=== PATIENT | female | born 1960 | race Caucasian/White ===

== ENCOUNTER 2017-01-11 20:09 | Emergency (ER) | payer OTHER, BC ==
[2017-01-11 20:26] VITALS: BP 166/79; BMI 60.0
== END 2017-01-11 21:29 | disposition left against medical advice (07) ==
LOC: ER 20:35
DX: R11.10 Vomiting, unspecified (principal)
CPT/HCPCS: 99281

== ENCOUNTER 2018-08-28 18:48 | Observation (INO) ==
--- NOTE | 2018-08-28 19:44 | DR.LOC ---
HPI Time seen Time Seen by Provider: 08/28/18 19:20 PCP Primary Care Physician: LIBERTY Complaint Chief Complaint Doctors Comments: A 57 y/o female brought by EMS with c/o LOC while sitting on the commode. She was in the shower and had a headache, so she came out of the shower and sat on the commode. She states that is what she remembered last. Her sister found her with acro-cyanosis around her lips. But the sister is not here to provide or contribute further to the hx. Chief Complaint:: APPLIN [facility] EMS BROUGHT IN PATIENT. PATIENT ALERT ORIENTED TO NAME . PATIENT STATES, "I WAS IN THE SHOWER, I GOT A REAL BAD HEADACHE. I TRIED TO SIT DOWN BUT I DON'T REMEMBER ANYTHING AFTER THAT." EMS STATES, FAMILY SAID SHE WAS BLUE AROUND HER MOUTH. NO OBVIOUS DEFORMITIES NOTED. PATIENT SEEMS CONFUSED, NOT RECALLING WHAT OCCURED. NO ACUTE DISTRESS NOTED Nurses Notes Reviewed Nurses Notes Review: Yes Source History Provided: Patient and EMS Mode of Arrival Mode of Arrival: EMS Timing Onset of Chief Complaint: 08/28/18 Came on: Suddenly Duration How lon Duration: Hours Context Postsyncopal phase: Delayed recovery Prehospital care: None History of: None Modifying factors Worsens: Nothing Associated signs and symptoms Associated Signs and Symptoms: Headache PMH PMH Past Medical History: Yes Past Medical History: Anxiety, Arthritis, Depression, Diabetes, Dyslipidemia, GERD and Hypertension Past Surgical History: Yes Surgical History: Appendectomy and Cholecystectomy Family History History of Family Medical Conditions: Yes Family Medical History: Diabetes Mellitus, Cancer, [place], Sudden Cardiac and Hypertension Social History Does patient currently use any type of tobacco product: No Have you used tobacco products in the last 12 months: No Type of Tobacco Use: None Does any household member use tobacco: No Alcohol Use: None Do you use any recreational Drugs:: No Lives With: Spouse Lives Where: Home infectious screening In the last 2 months have you had wt loss of >10#?: NO Have you had fever, night sweats or hemotysis?: No Have you traveled outside the country in the last 6 months?: No Isolation: Standard ROS Review of Systems Constitutional: No Symptoms Reported Eyes: No Symptoms Reported ENTM: No Symptoms Reported Respiratoy: No Symptoms Reported Cardiovascular: No Symptoms Reported Gastrointestinal/Abdominal: No Symptoms Reported Genitourinary: No Symptoms Reported Neurological: Headache and Other (LOC) Musculoskeletal: No Symptoms Reported Integumentary: No Symptoms Reported Hematologic/Lymphatic: No Symptoms Reported Endocrine: No Symptoms Reported Psychiatric: No Symptoms Reported PE Vital Signs Vitals: Temperature 98.1 F Pulse Rate [Apical] 80 Pulse Rate 80 Respiratory Rate 15 Blood Pressure [Left Radial 142/77 Artery] Blood Pressure [Left Arm] 139/68 Blood Pressure [Right Arm] 104/55 Blood Pressure 118/59 O2 Sat by Pulse Oximetry 98 General Limitations: No Limitations General Appearance: Alert, In No Apparent Distress and Obese Head Head Exam: Normal Inspection, Atraumatic and Normocephalic Eyes Eye exam: Normal Appearance and EOMI ENT ENT Exam: Normal Oropharynx and Mucous Membranes Moist Neck Neck Exam: Normal Inspection, Full ROM and Trachea Midline Chest Chest Inspection: Normal Inspection and Symmetric Chest Wall Rise Respiratory Respiratory Exam: Normal Lung Sounds Bilat Cardiovascular Cardiovascular Exam: Regular Rate, Normal Rhythm, +S1 and +S2 Abdominal Exam Abdominal Exam: Normal Inspection, Normal Bowel Sounds and Soft Rectal Rectal Exam: Deferred Extremities Extremities Exam: Normal Inspection Back Back Exam: Normal Inspection Neurologic Neurological Exam: Alert and Oriented X3 Psychiatric Psychiatric Exam: Normal Affect and Normal Mood Skin Skin Exam: Warm, Dry and Normal Color COURSE Reevaluation 1st: Improved Education/Counseling Education/Counseling: Patient, Family, Education and Counseling Educated On: Treatment, Diagnosis, Prognosis and Needs for Follow Up ROR Labs Reviewed Laboratory Results Reviewed?: Yes Result Diagrams: 08/28/18 19:56 08/28/18 19:56 Laboratory: WBC 11.2 X10^3/uL (3.6-10.0) H 08/28/18 19:56 RBC 4.79 X10^6/uL (3.5-5.4) 08/28/18 19:56 Hgb 12.1 g/dL (12.0-16.0) 08/28/18 19:56 Hct 37.3 % (36.0-47.0) 08/28/18 19:56 MCV 77.8 fL (80.0-100.0) L 08/28/18 19:56 MCH 25.2 pg (27.0-34.0) L 08/28/18 19:56 MCHC 32.3 g/dL (33.0-35.0) L 08/28/18 19:56 RDW 14.7 % (11.6-16.5) 08/28/18 19:56 Plt Count 217 X10^3/uL (150.0-450.0) 08/28/18 19:56 Plt Count Comment Adequate (ADEQUATE) 08/28/18 19:56 MPV 10.1 fL (7.4-11.0) 08/28/18 19:56 Neut % (Auto) 64.5 % (42.0-75.0) 08/28/18 19:56 Lymph % (Auto) 26.0 % (21.0-51.0) 08/28/18 19:56 Moody % (Auto) 7.0 % (0.0-13.0) 08/28/18 19:56 Eos % (Auto) 1.4 % (0.9-2.9) 08/28/18 19:56 Baso % (Auto) 1.1 % (0.2-1.0) H 08/28/18 19:56 Neut # (Auto) 7.2 x10^3/uL (2.2-4.8) H 08/28/18 19:56 Lymph # (Auto) 2.9 X10^3/uL (1.3-2.9) 08/28/18 19:56 Moody # (Auto) 0.8 x10^3/uL (0.3-0.8) 08/28/18 19:56 Eos # (Auto) 0.2 x10^3/uL (0.0-0.2) 08/28/18 19:56 Baso # (Auto) 0.1 X10^3/uL (0.0-0.1) 08/28/18 19:56 Absolute Nucleated RBC 0.0 /100WBC 08/28/18 19:56 Plt Morphology Comment Normal (NORMAL) 08/28/18 19:56 RBC Morphology Abnormal (NORMAL) A 08/28/18 19:56 Hypochromasia Slight A 08/28/18 19:56 Microcytosis Slight A 08/28/18 19:56 Sodium 134 mmol/L (136-145) L 08/28/18 19:56 Corrected Sodium 138 mmol/L (136-145) 08/28/18 19:56 Potassium 3.8 mmol/L (3.5-5.1) 08/28/18 19:56 Chloride 98 mmol/L (98-107) 08/28/18 19:56 Carbon Dioxide 27.5 mmol/L (21-32) 08/28/18 19:56 BUN 11 mg/dL (7-18) 08/28/18 19:56 Creatinine 1.04 mg/dL (0.55-1.02) H 08/28/18 19:56 Est GFR (MDRD) Af Amer > 60 (>60) 08/28/18 19:56 Est GFR (MDRD) Non-Af 58 (>60) L 08/28/18 19:56 Glucose 250 mg/dL (65-99) H 08/28/18 19:56 Calcium 9.0 mg/dL (8.5-10.1) 08/28/18 19:56 Corrected Calcium TNP 08/28/18 19:56 Total Bilirubin 0.20 mg/dL (0.2-1.0) 08/28/18 19:56 AST 29 Units/L (15-37) 08/28/18 19:56 ALT 33 Units/L (12-78) 08/28/18 19:56 Alkaline Phosphatase 76 Units/L (46-116) 08/28/18 19:56 Total Protein 7.7 g/dL (6.4-8.2) 08/28/18 19:56 Albumin 3.4 g/dL (3.4-5.0) 08/28/18 19:56 Globulin 4.3 g/dL (2.5-4.5) 08/28/18 19:56 Albumin/Globulin Ratio 0.8 Ratio (1.1-2.1) L 08/28/18 19:56 XRAY XRAY Interpreted by: Radiologist XRAY Findings: Brain CT: No acute intracranial abnormality Diagnosis Discharge Problem: Hyperlipidemia, mixed Syncope Qualifiers: Syncope type: unspecified Qualified Code(s): R55 - Syncope and collapse Diabetes Qualifiers: Diabetes mellitus type: type 2 Diabetes mellitus manager intermediate insulin use: without manager intermediate use Diabetes mellitus complication status: with unspecified complications Qualified Code(s): E11.8 - Type 2 diabetes mellitus with unspecified complications
[2018-08-28 20:08] LABS: BASOPHILS # (AUTO) 0.1 X10^3/uL (0.0-0.1); BASOPHILS % (AUTO) 1.1 % (0.2-1.0); EOSINOPHILS # (AUTO) 0.2 x10^3/uL (0.0-0.2); EOSINOPHILS % (AUTO) 1.4 % (0.9-2.9); HEMATOCRIT 37.3 % (36.0-47.0); HEMOGLOBIN 12.1 g/dL (12.0-16.0); LYMPHOCYTES # (AUTO) 2.9 X10^3/uL (1.3-2.9); MEAN CORPUSCULAR HEMOGLOBIN 25.2 pg (27.0-34.0); MEAN CORPUSCULAR HGB CONC 32.3 g/dL (33.0-35.0); MEAN CORPUSCULAR VOLUME 77.8 fL (80.0-100.0); MEAN PLATELET VOLUME 10.1 fL (7.4-11.0); MONOCYTES # (AUTO) 0.8 x10^3/uL (0.3-0.8); NEUTROPHILS # (AUTO) 7.2 x10^3/uL (2.2-4.8); NEUTROPHILS % (AUTO) 64.5 % (42.0-75.0); PLATELET COUNT 217 X10^3/uL (150.0-450.0); RED BLOOD COUNT 4.79 X10^6/uL (3.5-5.4); RED CELL DISTRIBUTION WIDTH 14.7 % (11.6-16.5); WHITE BLOOD COUNT 11.2 X10^3/uL (3.6-10.0)
[2018-08-28 20:13] LABS: HYPOCHROMASIA SLIGHT; MICROCYTOSIS SLIGHT; PLATELET MORPHOLOGY COMMENT NORMAL (NORMAL)
[2018-08-28 20:16] LABS: ALANINE AMINOTRANSFERASE 33 Units/L (12-78); ALBUMIN 3.4 g/dL (3.4-5.0); ALKALINE PHOSPHATASE 76 Units/L (46-116); ASPARTATE AMINO TRANSFERASE 29 Units/L (15-37); BLOOD UREA NITROGEN 11 mg/dL (7-18); CARBON DIOXIDE 27.5 mmol/L (21-32); CHLORIDE 98 mmol/L (98-107); COR NA(FOR HYPERGLY) 138 mmol/L (136-145); CREATININE 1.04 mg/dL (0.55-1.02); SODIUM 134 mmol/L (136-145); TOTAL PROTEIN 7.7 g/dL (6.4-8.2); eGFR NON BLACK RACES 58 (>60)
--- NOTE | 2018-08-28 20:29 | CT ---
HISTORY: Headache Study: CT brain without contrast Comparison: None Technique: Multiple axial images of the brain were obtained without administration of IV contrast. Dose reduction techniques including Automated Exposure Control (AEC) and adjustment of mA and kV were utilized. Findings: The brain parenchyma is within normal limits for patient's age. No evidence of acute hemorrhage, midline shift, mass effect or abnormal extra-axial fluid collection. The ventricular system is symmetric and nondilated. The soft tissues and osseous structures are unremarkable. The visualized paranasal sinuses are clear. IMPRESSION: 1.No acute intracranial abnormality. Reported By:
[2018-08-28] MEDS ORDERED: PATIENT'S HOME MEDICATION (Cholecalciferol (Vitamin D3) [Vitamin D3] 5,000 UNIT) PO SCH (22:35)
[2018-08-28] MEDS ORDERED: NEURONTIN CAP 400 MG PO PRN (22:35)
[2018-08-28] MEDS ORDERED: PHENERGAN TAB 25 MG PO PRN (22:35)
[2018-08-28 23:43] VITALS: BMI 58.3
[2018-08-29] MEDS: AMARYL TAB 4 MG PO SCH ×2 (05:30→11:07)
[2018-08-29] MEDS: SINGULAIR TAB 10 MG PO SCH ×2 (05:30→11:08)
[2018-08-29 05:33] LABS: ALANINE AMINOTRANSFERASE 28 Units/L (12-78); ALBUMIN 3.1 g/dL (3.4-5.0); ALKALINE PHOSPHATASE 66 Units/L (46-116); ASPARTATE AMINO TRANSFERASE 24 Units/L (15-37); BLOOD UREA NITROGEN 9 mg/dL (7-18); CALCIUM 8.7 mg/dL (8.5-10.1); CARBON DIOXIDE 28.4 mmol/L (21-32); CHLORIDE 98 mmol/L (98-107); COR CA(FOR HYPOALB) 9.4 mg/dL (8.5-10.1); COR NA(FOR HYPERGLY) 138 mmol/L (136-145); CREATININE 0.85 mg/dL (0.55-1.02); SODIUM 135 mmol/L (136-145); eGFR NON BLACK RACES > 60 (>60)
[2018-08-29] MEDS ORDERED: TRIAMTERENE HYDROCHLOROTHIAZID PO SCH (06:30)
[2018-08-29 07:10] LABS: BASOPHILS # (AUTO) 0.1 X10^3/uL (0.0-0.1); BASOPHILS % (AUTO) 0.9 % (0.2-1.0); EOSINOPHILS # (AUTO) 0.1 x10^3/uL (0.0-0.2); EOSINOPHILS % (AUTO) 1.3 % (0.9-2.9); HEMATOCRIT 36.1 % (36.0-47.0); HEMOGLOBIN 11.8 g/dL (12.0-16.0); LYMPHOCYTES # (AUTO) 2.9 X10^3/uL (1.3-2.9); LYMPHOCYTES % (AUTO) 31.8 % (21.0-51.0); MEAN CORPUSCULAR HEMOGLOBIN 25.5 pg (27.0-34.0); MEAN CORPUSCULAR HGB CONC 32.6 g/dL (33.0-35.0); MEAN CORPUSCULAR VOLUME 78.1 fL (80.0-100.0); MEAN PLATELET VOLUME 10.6 fL (7.4-11.0); MONOCYTES # (AUTO) 0.8 x10^3/uL (0.3-0.8); MONOCYTES % (AUTO) 8.4 % (0.0-13.0); NEUTROPHILS # (AUTO) 5.3 x10^3/uL (2.2-4.8); NEUTROPHILS % (AUTO) 57.6 % (42.0-75.0); PLATELET COUNT 188 X10^3/uL (150.0-450.0); RED BLOOD COUNT 4.62 X10^6/uL (3.5-5.4); RED CELL DISTRIBUTION WIDTH 14.9 % (11.6-16.5); WHITE BLOOD COUNT 9.2 X10^3/uL (3.6-10.0)
[2018-08-29] MEDS ORDERED: GLUCOPHAGE ONE ×2 (07:13→20:48)
[2018-08-29] MEDS ORDERED: ZESTRIL TAB 20 MG ONE (07:15)
[2018-08-29 07:17] LABS: HYPOCHROMASIA SLIGHT; PLATELET MORPHOLOGY COMMENT NORMAL (NORMAL)
[2018-08-29] MEDS: VITAMIN D3 PO SCH (08:15)
[2018-08-29] MEDS: PROzac PO SCH (08:16)
[2018-08-29] MEDS: MAXZIDE 37.5/25 MG PO SCH (08:16)
[2018-08-29] MEDS: GLUCOPHAGE PO SCH ×2 (08:16→20:54)
[2018-08-29] MEDS: LIPITOR TAB 20 MG PO SCH (08:17)
[2018-08-29] MEDS: LASIX PO SCH ×2 (08:17→20:41)
[2018-08-29] MEDS: REGLAN TAB 10 MG PO SCH ×4 (08:17→20:55)
[2018-08-29] MEDS: COLACE CAP 100 MG PO SCH (08:17)
[2018-08-29] MEDS: PriLOSEC PO SCH (08:17)
[2018-08-29] MEDS: ASPIRIN PO SCH (08:18)
[2018-08-29] MEDS ORDERED: ZESTRIL TAB 20 MG PO SCH (09:00)
--- NOTE | 2018-08-29 11:22 | DR.H&P ---
H&P - History & Physical for Day of: H&P Date: 08/28/18 - Chief Complaint Chief Complaint: HEADACHE, SYNCOPE, DIZZINESS - History of Present Illness History of Present Illness: IS A 57 YEAR OLD PATIENT OF OURS WHO PRESENTED TO THE ER WITH COMPLAINTS OF A SYNCOPAL EPISODE AT HOME. FAMILY REPORTS THAT PATIENT LOST CONSCIOUSNESS AND WAS BLUE AROUND THE MOUTH. PATIENT REPORTS A HEADACHE BEFORE PASSING OUT. ON ARRIVAL, VITALS WERE 98.1-79-20-99%-120/62. LABS WERE OBTAINED. ABNORMAL LAB VALUES INCLUDE THE FOLLOWING: WBC 11.2, SODIUM 134, CREATININE 1.04, GLUCOSE 250. A BRAIN CT WAS OBTAINED AND REVEALED: No acute intracranial abnormality. EKG REVEALED: SINUS RHYTHM WITH HR 81. SHE WAS ADMITTED FOR FURTHER EVALUATION AND TREATMENT OF SYNCOPE. WE PLAN TO FOLLOW UP WITH AM LABS, CAROTID DOPPLER, AND AN ECHO. OTHERWISE, WE WILL RESUME HOME MEDICATIONS AND CONTINUE TO MONITOR. - Past Medical History Past Medical History: Hypertension, Dyslipidemia, Diabetes, Depression, Anxiety, GERD, Arthritis Additional Medical History: Obesity - Past Surgical History Surgical History: Appendectomy, Cholecystectomy Additional Surgical History: D&C, Neck Surgery - Family History Family Medical History: Diabetes Mellitus, Cancer, [place], Sudden Cardiac , Hypertension - Social History Does patient currently use any type of tobacco product: No Have you used tobacco products in the last 12 months: No Type of Tobacco Use: None Does any household member use tobacco: No Alcohol Use: None Drug Use: None - Medications Home Medications: codeine Allergy (Verified 08/28/18 19:49) ibuprofen Allergy (Verified 08/28/18 19:49) Sulfa (Sulfonamide Antibiotics) [SULFA] Allergy (Verified 08/28/18 19:49) CONTINUE taking the following medications aspirin 325 mg PO DAILY 08/28/18 [History] atorvastatin 20 mg PO DAILY 08/28/18 [History] cetirizine 10 mg PO HS 08/28/18 [History] cholecalciferol (vitamin D3) [Vitamin D3] 5,000 unit PO QDAY 08/28/18 [History] docusate sodium 100 mg PO DAILY 08/28/18 [History] fluoxetine 40 mg PO DAILY 08/28/18 [History] furosemide 40 mg PO BID 08/28/18 [History] gabapentin 400 mg PO TID PRN 08/28/18 [History] glimepiride 4 mg PO AC 08/28/18 [History] lisinopril 20 mg PO DAILY 08/28/18 [History] metformin 1,000 mg PO BID 08/28/18 [History] metoclopramide HCl 10 mg PO QID 08/28/18 [History] montelukast 10 mg PO AC 08/28/18 [History] omeprazole 20 mg PO DAILY 08/28/18 [History] promethazine 25 mg PO TID PRN 08/28/18 [History] triamterene-hydrochlorothiazid [Dyazide] 1 cap PO AC 08/28/18 [History] - Review of Systems Constitutional: Weakness Eyes: No Symptoms Reported ENT: No Symptoms Reported Respiratory: No Symptoms Reported Cardiovascular: Light Headedness Gastrointestinal: No Symptoms Reported Genitourinary: No Symptoms Reported Musculoskeletal: No Symptoms Reported Skin: No Symptoms Reported Neurological: See HPI, Weakness, Other (SYNCOPE ) - Physical Exam Vital Signs: Temperature 98.1 F Pulse Rate [Apical] 82 Pulse Rate 80 Respiratory Rate 20 Blood Pressure [Left Radial 142/77 Artery] Blood Pressure [Left Arm] 139/68 Blood Pressure [Right Arm] 138/70 Blood Pressure 118/59 O2 Sat by Pulse Oximetry 96 Oriented: Normal Eyes: Normal Ear: Normal Nose: Normal Throat: Normal Respiratory: Diminished Throughout Cardiovascular: Normal : Normal Auscultation: Bowel Sounds: Normal Palpation: Normal Tenderness: Normal Skin: Normal Musculoskeletal: Normal Psychiatric: Normal Mood Description: Calm Affect: Normal Speech Pattern: Clear - Assessment/Plan (1) Syncope Qualifiers: Syncope type: unspecified Qualified Code(s): R55 - Syncope and collapse Status: Acute Plan: OBTAIN CAROTID DOPPLER, OBTAIN ECHO, CONTINUE TO MONITOR - Allergies Allergies/Adverse Reactions: Allergies Allergy/AdvReac Type Severity Reaction Status Date / Time codeine Allergy Verified 08/28/18 19:49 ibuprofen Allergy Verified 08/28/18 19:49 Sulfa (Sulfonamide Allergy Verified 08/28/18 19:49 Antibiotics) [SULFA]
[2018-08-29 13:58] LABS: BILIRUBIN,URINE NEGATIVE (NEGATIVE); BLOOD/HEMOGLOBIN,URINE NEGATIVE (NEGATIVE); GLUCOSE, URINE NEGATIVE (NEGATIVE); KETONES,URINE NEGATIVE (NEGATIVE); LEUKOCYTE ESTERASE ,URINE NEGATIVE (NEGATIVE); NITRITES,URINE NEGATIVE (NEGATIVE); PROTEIN,URINE NEGATIVE (NEGATIVE); UROBILINOGEN,URINE NORMAL (NORMAL)
[2018-08-29 14:00] LABS: APPEARANCE,URINE CLEAR (CLEAR); COLOR,URINE PALE YELLOW (YELLOW)
--- NOTE | 2018-08-29 15:03 | VAS ---
History: Syncope Study: Carotid duplex ultrasound Findings: Images show mild plaque formation at the right carotid bifurcation. Peak systolic velocity in the distal right common carotid artery is 83.8 centimeters/second and in the right internal carotid artery is 83.8 centimeters/second for a ratio of 1. Peak systolic velocity in the left distal common carotid artery is 65.7 centimeters/second and in the left internal carotid artery is 74.1 centimeters/second for ratio of 1.3. There is antegrade flow in the vertebral arteries. Impression: Small calcified plaque formation in the right carotid bulb proximally. No evidence for significant stenosis. Reported By:
[2018-08-29] MEDS ORDERED: POTASSIUM CHLORIDE LIQ 20 MEQ UDC PO PRN (19:16)
[2018-08-29] MEDS ORDERED: K-RIDER 10 MEQ/NS 100 ML 10 MEQ/100 ML BAG IV PRN (19:16)
[2018-08-29] MEDS ORDERED: MAGNESIUM SULFATE 1 GRAM/100 mL PREMIX 1 GM/100 ML BAG IV PRN (19:16)
[2018-08-29] MEDS ORDERED: POTASSIUM CHL 40 MEQ/NS 0.45% 500 ML IV PRN (19:16)
[2018-08-29] MEDS ORDERED: MICRO K EXTEN CAP 10 MEQ PO PRN (19:16)
[2018-08-29] MEDS ORDERED: KLOR-CON PO PRN (19:16)
[2018-08-29] MEDS ORDERED: K-DUR TAB 20 MEQ PO PRN (19:16)
[2018-08-29] MEDS ORDERED: POTASSIUM CHL 60 MEQ/NS 0.45% 500 ML IV PRN (19:16)
[2018-08-29] MEDS ORDERED: ZyrTEC TAB 10 MG PO SCH (21:00)
[2018-08-29] MEDS ORDERED: ZOFRAN INJ 4 MG VIAL IVP PRN (21:58)
[2018-08-30 05:21] LABS: BASOPHILS # (AUTO) 0.1 X10^3/uL (0.0-0.1); BASOPHILS % (AUTO) 0.9 % (0.2-1.0); EOSINOPHILS # (AUTO) 0.1 x10^3/uL (0.0-0.2); EOSINOPHILS % (AUTO) 1.4 % (0.9-2.9); HEMATOCRIT 38.6 % (36.0-47.0); HEMOGLOBIN 12.5 g/dL (12.0-16.0); LYMPHOCYTES # (AUTO) 3.3 X10^3/uL (1.3-2.9); LYMPHOCYTES % (AUTO) 32.7 % (21.0-51.0); MEAN CORPUSCULAR HEMOGLOBIN 25.4 pg (27.0-34.0); MEAN CORPUSCULAR HGB CONC 32.5 g/dL (33.0-35.0); MEAN CORPUSCULAR VOLUME 78.3 fL (80.0-100.0); MEAN PLATELET VOLUME 10.8 fL (7.4-11.0); MONOCYTES # (AUTO) 0.7 x10^3/uL (0.3-0.8); MONOCYTES % (AUTO) 6.9 % (0.0-13.0); NEUTROPHILS # (AUTO) 5.9 x10^3/uL (2.2-4.8); NEUTROPHILS % (AUTO) 58.1 % (42.0-75.0); PLATELET COUNT 214 X10^3/uL (150.0-450.0); RED BLOOD COUNT 4.93 X10^6/uL (3.5-5.4); RED CELL DISTRIBUTION WIDTH 14.9 % (11.6-16.5); WHITE BLOOD COUNT 10.1 X10^3/uL (3.6-10.0)
[2018-08-30 05:42] LABS: ALANINE AMINOTRANSFERASE 36 Units/L (12-78); ALBUMIN 3.4 g/dL (3.4-5.0); ALKALINE PHOSPHATASE 75 Units/L (46-116); ASPARTATE AMINO TRANSFERASE 25 Units/L (15-37); BLOOD UREA NITROGEN 11 mg/dL (7-18); CALCIUM 9.6 mg/dL (8.5-10.1); CARBON DIOXIDE 28.1 mmol/L (21-32); CHLORIDE 97 mmol/L (98-107); COR NA(FOR HYPERGLY) 136 mmol/L (136-145); CREATININE 0.98 mg/dL (0.55-1.02); MAGNESIUM 2.1 mg/dL (1.7-2.9); SODIUM 134 mmol/L (136-145); TOTAL PROTEIN 7.8 g/dL (6.4-8.2); eGFR NON BLACK RACES > 60 (>60)
[2018-08-30 06:05] LABS: HYPOCHROMASIA SLIGHT; PLATELET MORPHOLOGY COMMENT NORMAL (NORMAL)
[2018-08-30] MEDS ORDERED: GLUCOPHAGE ONE (08:10)
[2018-08-30] MEDS ORDERED: ZESTRIL TAB 20 MG ONE (08:13)
[2018-08-30] MEDS: GLUCOPHAGE PO SCH (08:38)
[2018-08-30] MEDS: COLACE CAP 100 MG PO SCH (08:39)
[2018-08-30] MEDS: PROzac PO SCH (08:39)
[2018-08-30] MEDS: VITAMIN D3 PO SCH (08:39)
[2018-08-30] MEDS: PriLOSEC PO SCH (08:40)
[2018-08-30] MEDS: ASPIRIN PO SCH (08:40)
[2018-08-30] MEDS: REGLAN TAB 10 MG PO SCH (08:40)
[2018-08-30] MEDS: LIPITOR TAB 20 MG PO SCH (08:40)
[2018-08-30] MEDS: MAXZIDE 37.5/25 MG PO SCH (08:48)
[2018-08-30] MEDS: LASIX PO SCH (08:48)
[2018-08-30] MEDS ORDERED: AMARYL TAB 4 MG PO SCH (09:00)
[2018-08-30] MEDS ORDERED: SINGULAIR TAB 10 MG PO SCH (09:00)
[2018-08-30] MEDS ORDERED: ZESTRIL TAB 20 MG PO SCH (09:00)
[2018-08-30 09:54] VITALS: BP 136/67
== END 2018-08-30 11:30 | disposition home or self-care (01) ==
LOC: MED/SURG 18:49 → ER 18:49 → MED/SURG 22:32
PROVIDERS: ADMIT Internal Medicine; ATTEND Internal Medicine
DX: E11.65 Type 2 diabetes mellitus with hyperglycemia; F32.89 Other specified depressive episodes; F41.8 Other specified anxiety disorders; R51 Headache; K21.9 Gastro-esophageal reflux disease without esophagitis; E78.2 Mixed hyperlipidemia; I10 Essential (primary) hypertension; R42 Dizziness and giddiness; R55 Syncope and collapse
CPT/HCPCS: 36415; 70450; 80053; 81003; 83735; 85025; 93005; 93880; 96365; 96374; 97162; 99284; A4222; G0378; J3475

== ENCOUNTER 2018-12-25 11:23 | Observation (INO) ==
[2018-12-25 14:34] VITALS: BMI 55.3
[2018-12-25 14:49] LABS: BASOPHILS # (AUTO) 0.1 X10^3/uL (0.0-0.1); BASOPHILS % (AUTO) 1.5 % (0.2-1.0); EOSINOPHILS # (AUTO) 0.3 x10^3/uL (0.0-0.2); EOSINOPHILS % (AUTO) 2.6 % (0.9-2.9); HEMATOCRIT 37.6 % (36.0-47.0); HEMOGLOBIN 12.4 g/dL (12.0-16.0); LYMPHOCYTES # (AUTO) 2.9 X10^3/uL (1.3-2.9); LYMPHOCYTES % (AUTO) 28.8 % (21.0-51.0); MEAN CORPUSCULAR HEMOGLOBIN 25.6 pg (27.0-34.0); MEAN CORPUSCULAR VOLUME 77.6 fL (80.0-100.0); MEAN PLATELET VOLUME 10.3 fL (7.4-11.0); MONOCYTES # (AUTO) 0.6 x10^3/uL (0.3-0.8); MONOCYTES % (AUTO) 6.1 % (0.0-13.0); NEUTROPHILS # (AUTO) 6.1 x10^3/uL (2.2-4.8); PLATELET COUNT 225 X10^3/uL (150.0-450.0); RED BLOOD COUNT 4.85 X10^6/uL (3.5-5.4); RED CELL DISTRIBUTION WIDTH 14.9 % (11.6-16.5)
--- NOTE | 2018-12-25 14:55 | RAD ---
HISTORY: Pneumonia Study: Single-view chest Comparison: 04/09/2016. Findings: Trachea is midline. Heart size normal. Increased interstitial markings are present bilaterally which may indicate mild bronchitis or interstitial pneumonia. No dense consolidation, CHF, pleural fluid or pneumothorax is seen. Osseous structures are intact. IMPRESSION: Increased interstitial markings are present bilaterally which may indicate mild bronchitis or interstitial pneumonia. No dense consolidation or CHF is seen. Reported By:
[2018-12-25] MEDS ORDERED: NS 1/2 1000 ML IV 1,000 ML IV ONE (14:57)
[2018-12-25 15:01] LABS: ALANINE AMINOTRANSFERASE 40 Units/L (12-78); ALBUMIN 3.6 g/dL (3.4-5.0); ALKALINE PHOSPHATASE 77 Units/L (46-116); ASPARTATE AMINO TRANSFERASE 44 Units/L (15-37); BLOOD UREA NITROGEN 10 mg/dL (7-18); CALCIUM 9.2 mg/dL (8.5-10.1); CARBON DIOXIDE 29.3 mmol/L (21-32); CHLORIDE 96 mmol/L (98-107); COR NA(FOR HYPERGLY) 139 mmol/L (136-145); CREATININE 0.88 mg/dL (0.55-1.02); SODIUM 135 mmol/L (136-145); TOTAL PROTEIN 8.2 g/dL (6.4-8.2); eGFR NON BLACK RACES > 60 (>60)
[2018-12-25 15:05] LABS: HYPOCHROMASIA SLIGHT; PLATELET MORPHOLOGY COMMENT NORMAL (NORMAL)
[2018-12-25] MEDS: NS 1/2 1000 ML IV 1,000 ML IV SCH (15:32)
[2018-12-25] MEDS: ROBITUSSIN DM PO SCH ×3 (15:33→21:06)
[2018-12-25] MEDS: LEVAQUIN PREMIX IV 750 MG 750 MG/150 ML BAG IV SCH (15:33)
[2018-12-25] MEDS: VSL#3 PO SCH (15:34)
[2018-12-25] MEDS: FORTAZ or TAZICEF VIAL INJ IVP SCH ×2 (15:34→21:06)
[2018-12-25] MEDS ORDERED: SALINE 3% 15 ML NEB TX NEB ONE (16:18)
[2018-12-25] MEDS: DUONEB 0.5 MG/3 MG NEB SCH ×2 (16:20→20:10)
[2018-12-25] MEDS ORDERED: SNACK - Diabetic Appropriate PO SCH (20:00)
[2018-12-25] MEDS: HumuLIN R SC PRN (21:57)
--- NOTE | 2018-12-26 06:11 | RAD ---
Chest AP portable Indication: Pneumonia Comparison: 12/25/2018 Findings: There is no pneumothorax or effusion. There is no consolidation. Heart size is prominent. Impression: No acute chest process change from the prior. Heart size is prominent, accentuated by technique Reported By:
[2018-12-26] MEDS ORDERED: NS 1/2 1000 ML IV 1,000 ML IV ONE (06:17)
[2018-12-26 06:23] LABS: BASOPHILS # (AUTO) 0.1 X10^3/uL (0.0-0.1); BASOPHILS % (AUTO) 1.2 % (0.2-1.0); EOSINOPHILS # (AUTO) 0.3 x10^3/uL (0.0-0.2); EOSINOPHILS % (AUTO) 3.1 % (0.9-2.9); HEMATOCRIT 34.8 % (36.0-47.0); HEMOGLOBIN 11.6 g/dL (12.0-16.0); LYMPHOCYTES # (AUTO) 2.4 X10^3/uL (1.3-2.9); LYMPHOCYTES % (AUTO) 27.8 % (21.0-51.0); MEAN CORPUSCULAR HGB CONC 33.4 g/dL (33.0-35.0); MEAN CORPUSCULAR VOLUME 77.8 fL (80.0-100.0); MEAN PLATELET VOLUME 10.6 fL (7.4-11.0); MONOCYTES # (AUTO) 0.8 x10^3/uL (0.3-0.8); MONOCYTES % (AUTO) 9.5 % (0.0-13.0); NEUTROPHILS # (AUTO) 5.1 x10^3/uL (2.2-4.8); NEUTROPHILS % (AUTO) 58.4 % (42.0-75.0); PLATELET COUNT 187 X10^3/uL (150.0-450.0); RED BLOOD COUNT 4.48 X10^6/uL (3.5-5.4); RED CELL DISTRIBUTION WIDTH 14.7 % (11.6-16.5); WHITE BLOOD COUNT 8.7 X10^3/uL (3.6-10.0)
[2018-12-26 06:34] LABS: ALANINE AMINOTRANSFERASE 33 Units/L (12-78); ALBUMIN 3.2 g/dL (3.4-5.0); ALKALINE PHOSPHATASE 65 Units/L (46-116); ASPARTATE AMINO TRANSFERASE 36 Units/L (15-37); BLOOD UREA NITROGEN 8 mg/dL (7-18); CALCIUM 8.9 mg/dL (8.5-10.1); CARBON DIOXIDE 27.9 mmol/L (21-32); CHLORIDE 98 mmol/L (98-107); COR CA(FOR HYPOALB) 9.5 mg/dL (8.5-10.1); COR NA(FOR HYPERGLY) 139 mmol/L (136-145); CREATININE 0.87 mg/dL (0.55-1.02); SODIUM 135 mmol/L (136-145); TOTAL PROTEIN 7.3 g/dL (6.4-8.2); eGFR NON BLACK RACES > 60 (>60)
[2018-12-26] MEDS: HumuLIN R SC PRN (07:21)
[2018-12-26] MEDS: FORTAZ or TAZICEF VIAL INJ IVP SCH (07:21)
[2018-12-26] MEDS: NS 1/2 1000 ML IV 1,000 ML IV SCH (07:21)
[2018-12-26] MEDS: XOPENEX 1.25 MG/3 ML NEBULE NEB SCH ×2 (08:21→12:02)
[2018-12-26] MEDS: ROBITUSSIN DM PO SCH ×2 (08:31→13:08)
[2018-12-26] MEDS: LEVAQUIN PREMIX IV 750 MG 750 MG/150 ML BAG IV SCH (08:31)
[2018-12-26] MEDS: VSL#3 PO SCH (08:31)
[2018-12-26] MEDS ORDERED: PHARMACY CONSULT - DOSE _____ XX SCH (10:00)
[2018-12-26] MEDS ORDERED: ALLEGRA PO PRN (10:43)
[2018-12-26] MEDS ORDERED: NEURONTIN CAP 400 MG PO PRN (10:43)
[2018-12-26] MEDS ORDERED: PHENERGAN TAB 25 MG PO PRN (10:43)
[2018-12-26] MEDS ORDERED: MAXZIDE 37.5/25 MG PO SCH (10:45)
[2018-12-26] MEDS ORDERED: VITAMIN D3 PO SCH (10:45)
[2018-12-26] MEDS ORDERED: COLACE CAP 100 MG PO SCH (11:00)
[2018-12-26] MEDS ORDERED: LASIX PO SCH (11:00)
[2018-12-26] MEDS ORDERED: LOVENOX INJ 40 MG SYR SC SCH (11:00)
[2018-12-26] MEDS ORDERED: LIPITOR TAB 20 MG PO SCH (11:00)
[2018-12-26] MEDS ORDERED: PROzac PO SCH (11:00)
[2018-12-26] MEDS ORDERED: SINGULAIR TAB 10 MG PO SCH (11:00)
[2018-12-26] MEDS ORDERED: ZESTRIL TAB 10 MG PO SCH (11:00)
[2018-12-26] MEDS ORDERED: AMARYL TAB 4 MG PO SCH (11:00)
[2018-12-26] MEDS ORDERED: PriLOSEC PO SCH (11:00)
[2018-12-26] MEDS ORDERED: ASPIRIN PO SCH (11:00)
[2018-12-26] MEDS ORDERED: GLUCOPHAGE PO SCH (11:00)
[2018-12-26] MEDS ORDERED: SYNTHROID 50 mcg TAB PO SCH (11:00)
[2018-12-26] MEDS: REGLAN TAB 10 MG PO SCH ×3 (11:47→13:08)
[2018-12-26] MEDS ORDERED: DIFLUCAN PO SCH (12:00)
[2018-12-26 12:43] VITALS: BP 148/66
[2018-12-26] MEDS ORDERED: ZyrTEC TAB 10 MG PO SCH (21:00)
== END 2018-12-26 13:15 | disposition home or self-care (01) ==
LOC: MED/SURG
PROVIDERS: ADMIT Internal Medicine; ATTEND Internal Medicine
DX: I10 Essential (primary) hypertension; E78.2 Mixed hyperlipidemia; E03.8 Other specified hypothyroidism; J18.8 Other pneumonia, unspecified organism; E11.65 Type 2 diabetes mellitus with hyperglycemia
CPT/HCPCS: 36415; 71010; 71045; 80053; 85025; 87040; 87070; 87205; 94640; 94760; 96367; 96372; A4222; G0378; J0713; J1815; J1956; J7620